=== PATIENT | male | born 1990 | race Caucasian/White ===

== ENCOUNTER 2020-12-26 08:19 | Emergency (ER) | payer BC ==
--- NOTE | 2020-12-26 08:54 | XRAY ---
Indication: Pain. No known injury. Comparison: None 3 view left shoulder obtained. No bony, articular, or soft tissue abnormalities.
[2020-12-26 09:22] LABS: ALBUMIN 4.4 g/dL (3.5-5.0); ALKALINE PHOSPHATASE 76 U/L (38-126); ANION GAP 11.9 MEQ/L (5-15); BLOOD UREA NITROGEN 15 mg/dL (9-20); CHLORIDE 102 mmol/L (98-107); Calcium 9.6 mg/dL (8.4-10.2); Carbon Dioxide 29 mmol/L (22-30); Creatinine 1 1.01 mg/dL (0.66-1.25); EST GLOMERULAR FILTRATION RATE > 60.0 ML/MIN; Glucose 106 mg/dL (74-106); Potassium 3.9 mmol/L (3.5-5.1); SGOT/AST 35 U/L (17-59); SGPT/ALT 38 U/L (0-50); SODIUM 138 mmol/L (137-145); Total Protein 7.8 g/dL (6.3-8.2)
[2020-12-26 09:49] LABS: Absolute Neutrophil Ct (ANC) 6.35 (1.4-6.9); BASOPHIL % 0.4 % (0.0-0.4); Basophil (Absolute #) 0.04 (0-0.4); Eosinophil % 1.1 % (0.00-5.0); Hematocrit 44.8 % (42-50); Hemoglobin 14.2 gm/dl (12.5-18.0); Lymphocyte (Absolute #) 2.01 (1.0-4.6); Lymphocytes % 21.6 % (24.0-44.0); Mean Cell Volume 85.5 fl (78-100); Mean Corpuscular Hemoglobin 27.1 pg (26-32); Mean Corpuscular Hgb Concent. 31.7 g/dl (32-36); Monocytes % 8.6 % (0.0-12.0); Neutrophil % 68.3 % (36.0-66.0); Platelet Count 352 K/mm3 (150-450); Red Blood Count 5.24 M/mm3 (4.1-5.6); Red Cell Distribution Width 13.2 % (11.5-14.0); White Blood Count 9.3 K/mm3 (4.0-10.5)
[2020-12-26 10:09] VITALS: BP 120/73
--- NOTE | 2020-12-26 10:34 | ERPHSYRPT ---
- History of Present Illness Time Seen by Provider: 12/26/20 08:30 Source: patient Exam Limitations: no limitations Patient Subjective Stated Complaint: Left shoulder pain Triage Nursing Assessment: Patient ambulated back to ED and transfered self to bed. Patient A+O X3. Patient's skin pink, warm and dry. Patient complains of left shoulder pain constant dull sharp pain 4/10 that started last night. Patient unable to sleep due to pain. No bruising or visible injuries noted. Physician History: Patient is a 30-year-old male presents to our ED with complaints of left shoulder left upper chest pain that started last night. Pain described as a small ache that is rated 4 out of 10. No associated trauma. No fever. No nausea or vomiting. Patient denies eddie chest pain. No diaphoresis. No shortness of breath. Pain is reproduced with certain motions. Unable to elicit pain with palpation. Symptoms are mild to moderate in intensity. Patient does not see a primary care doctor regularly. Patient voices no other complaints or concerns at this time. Timing/Duration: yesterday Severity: moderate Modifying Factors: Improves With: movement Associated Symptoms: denies symptoms Allergies/Adverse Reactions: No Known Drug Allergies Allergy (Unverified 12/26/20 08:25) Home Medications: No Reportable Medications [No Reported Medications] 12/26/20 [History] Hx Influenza Vaccination/Date Given: No Hx Pneumococcal Vaccination/Date Given: No Immunizations Up to Date: Yes Travel Risk - International Travel Have you traveled outside of the country in past 3 weeks: No - Coronavirus Screening Are you exhibiting any of the following symptoms?: No Close contact with a COVID-19 positive Pt in past 14-21 Days: No - Review of Systems Constitutional: No Symptoms, No Fever, No Chills Eyes: No Symptoms Ears, Nose, & Throat: No Symptoms Respiratory: No Symptoms, No Cough, No Dyspnea Cardiac: No Symptoms, No Chest Pain, No Edema, No Syncope Abdominal/Gastrointestinal: No Symptoms, No Abdominal Pain, No Nausea, No Vomiting, No Diarrhea Genitourinary Symptoms: No Symptoms, No Dysuria Musculoskeletal: No Symptoms, No Back Pain, No Neck Pain Skin: No Symptoms, No Rash Neurological: No Symptoms, No Dizziness, No Focal Weakness, No Sensory Changes Psychological: No Symptoms Endocrine: No Symptoms Hematologic/Lymphatic: No Symptoms Immunological/Allergic: No Symptoms All Other Systems: Reviewed and Negative - Past Medical History Pertinent Past Medical History: No Neurological History: No Pertinent History ENT History: No Pertinent History Cardiac History: No Pertinent History Respiratory History: No Pertinent History Endocrine Medical History: No Pertinent History Musculoskeletal History: No Pertinent History GI Medical History: No Pertinent History History: No Pertinent History Psycho-Social History: No Pertinent History Male Reproductive Disorders: No Pertinent History - Past Surgical History Past Surgical History: No Neuro Surgical History: No Pertinent History Cardiac: No Pertinent History Respiratory: No Pertinent History Gastrointestinal: No Pertinent History Genitourinary: No Pertinent History Musculoskeletal: No Pertinent History Male Surgical History: No Pertinent History - Social History Smoking Status: Never smoker Exposure to second hand smoke: No Drug Use: none Patient Lives Alone: No - Nursing Vital Signs Nursing Vital Signs: Initial Vital Signs Temperature 97.9 F 12/26/20 08:27 Pulse Rate 98 H 12/26/20 08:27 Respiratory Rate 18 12/26/20 08:27 Blood Pressure 153/88 12/26/20 08:27 O2 Sat by Pulse Oximetry 97 12/26/20 08:27 Pain Scale Pain Intensity 4 - Physical Exam General Appearance: no apparent distress, alert Eye Exam: PERRL/EOMI, eyes nml inspection Ears, Nose, Throat Exam: normal ENT inspection, TMs normal, pharynx normal, moist mucous membranes Neck Exam: normal inspection, non-tender, supple, full range of motion Respiratory Exam: normal breath sounds, lungs clear, airway intact, other (Unable to elicit shoulder pain with palpation.), No respiratory distress Cardiovascular Exam: regular rate/rhythm, normal heart sounds, normal peripheral pulses Gastrointestinal/Abdomen Exam: soft, normal bowel sounds, No tenderness, No mass Back Exam: normal inspection, normal range of motion, No CVA tenderness, No vertebral tenderness Extremity Exam: normal inspection, normal range of motion, pelvis stable Neurologic Exam: alert, oriented x 3, cooperative, normal mood/affect, nml cerebellar function, nml station & gait, sensation nml, No motor deficits Skin Exam: normal color, warm, dry, No rash Lymphatic Exam: No adenopathy SpO2 Interpretation: normal SpO2: 98 O2 Delivery: Room Air - Course Nursing assessment & vital signs reviewed: Yes EKG Interpreted by Me: RATE (77), Sinus Rhythm (T wave inversion/flattening at 3 and aVF.), NORMAL AXIS, NORMAL INTERVALS - Radiology Exams Shoulder X-ray Interpretation: Teleradiologist Report (Use of left shoulder obtained. No bony articular or soft tissue abnormalities.) Ordered Tests: Active Orders 24 hr Category Date Time Status Knitting Machine Operator Helper STAT Care 12/26/20 08:53 Active EKG-ER Only STAT Care 12/26/20 08:52 Active Pulse Oximetry (ED) STAT Care 12/26/20 08:52 Active SHOULDER Stat Exams 12/26/20 08:48 Completed CBC W DIFF Stat Lab 12/26/20 09:05 Completed CMP Stat Lab 12/26/20 09:05 Completed D-DIMER QUANTITATIVE Stat Lab 12/26/20 09:05 Completed TROPONIN Q3H Lab 12/26/20 09:05 Completed TROPONIN Q3H Lab 12/26/20 10:55 Received TROPONIN Q3H Lab 12/26/20 15:00 Ordered TROPONIN Q3H Lab 12/26/20 18:00 Ordered TROPONIN Q3H Lab 12/26/20 21:00 Ordered Lab/Rad Data: Laboratory Result Diagrams 12/26/20 09:05 12/26/20 09:05 Laboratory Results 12/26/20 12/26/20 12/26/20 Range/Units 09:05 09:05 09:05 WBC (4.0-10.5) K/mm3 RBC (4.1-5.6) M/mm3 Hgb (12.5-18.0) gm/dl Hct (42-50) % MCV (78-100) fl MCH (26-32) pg MCHC (32-36) g/dl RDW (11.5-14.0) % Plt Count (150-450) K/mm3 MPV (7.5-11.0) fl Gran % (36.0-66.0) % Eos # (Auto) (0-0.5) Absolute Lymphs (auto) (1.0-4.6) Absolute Monos (auto) (0.0-1.3) Lymphocytes % (24.0-44.0) % Monocytes % (0.0-12.0) % Eosinophils % (0.00-5.0) % Basophils % (0.0-0.4) % Absolute Granulocytes (1.4-6.9) Basophils # (0-0.4) D-Dimer < 215 L (215-500) ng/mL Sodium 138 (137-145) mmol/L Potassium 3.9 (3.5-5.1) mmol/L Chloride 102 (98-107) mmol/L Carbon Dioxide 29 (22-30) mmol/L Anion Gap 11.9 (5-15) MEQ/L BUN 15 (9-20) mg/dL Creatinine 1.01 (0.66-1.25) mg/dL Estimated GFR > 60.0 ML/MIN Glucose 106 (74-106) mg/dL Calcium 9.6 (8.4-10.2) mg/dL Total Bilirubin 0.40 (0.2-1.3) mg/dL AST 35 (17-59) U/L ALT 38 (0-50) U/L Alkaline Phosphatase 76 (38-126) U/L Troponin I < 0.012 (0.000-0.034) ng/mL Serum Total Protein 7.8 (6.3-8.2) g/dL Albumin 4.4 (3.5-5.0) g/dL 12/26/20 Range/Units 09:05 WBC 9.3 (4.0-10.5) K/mm3 RBC 5.24 (4.1-5.6) M/mm3 Hgb 14.2 (12.5-18.0) gm/dl Hct 44.8 (42-50) % MCV 85.5 (78-100) fl MCH 27.1 (26-32) pg MCHC 31.7 L (32-36) g/dl RDW 13.2 (11.5-14.0) % Plt Count 352 (150-450) K/mm3 MPV 9.0 (7.5-11.0) fl Gran % 68.3 H (36.0-66.0) % Eos # (Auto) 0.10 (0-0.5) Absolute Lymphs (auto) 2.01 (1.0-4.6) Absolute Monos (auto) 0.80 (0.0-1.3) Lymphocytes % 21.6 L (24.0-44.0) % Monocytes % 8.6 (0.0-12.0) % Eosinophils % 1.1 (0.00-5.0) % Basophils % 0.4 (0.0-0.4) % Absolute Granulocytes 6.35 (1.4-6.9) Basophils # 0.04 (0-0.4) D-Dimer (215-500) ng/mL Sodium (137-145) mmol/L Potassium (3.5-5.1) mmol/L Chloride (98-107) mmol/L Carbon Dioxide (22-30) mmol/L Anion Gap (5-15) MEQ/L BUN (9-20) mg/dL Creatinine (0.66-1.25) mg/dL Estimated GFR ML/MIN Glucose (74-106) mg/dL Calcium (8.4-10.2) mg/dL Total Bilirubin (0.2-1.3) mg/dL AST (17-59) U/L ALT (0-50) U/L Alkaline Phosphatase (38-126) U/L Troponin I (0.000-0.034) ng/mL Serum Total Protein (6.3-8.2) g/dL Albumin (3.5-5.0) g/dL - Progress Progress: improved Progress Note: 12/26/20 10:35 Patient reassessed. No active pain at this time. Vital stable. X-ray shoulder negative for acute pathology. In light of the fact that patient does not follow a primary care physician and patient's pain unable to be elicited with palpation to the shoulder and the proximity of the pain to the patient's chest we initiated a screening cardiac work-up. EKG reveals T wave inversions at 3 and aVF. Otherwise nonremarkable EKG. Troponin negative x2. Will discharge patient home. Patient to follow-up with his primary care doctor within 48 hours for reevaluation. Patient does not have a primary care doctor to follow-up with. Our no doc for the day is Dr. Londono. Referral to Dr. Londono was provided to patient. 12/26/20 10:37 Counseled pt/family regarding: lab results, diagnosis, need for follow-up, rad results - Departure Departure Disposition: Home Clinical Impression: Shoulder pain, Abnormal EKG Condition: Stable Critical Care Time: No Referrals: DOCTOR,NO FAMILY [Primary Care Provider] - FEI LONDONO [ACTIVE STAFF] - Instructions: Shoulder Sprain (DC) Additional Instructions: Discharge/Care Plan COLBYEVAJOSAFAT JESSIKA was seen on 12/26/20 in the Emergency Room. The patient was counseled regarding Diagnosis,Lab results, Imaging studies, need for follow up and when to return to the Emergency Room. Prescriptions given: Discharge Note I have spoken with the patient and/or caregivers. I have explained the patient's condition, diagnosis and treatment plan based on the information available to me at this time. I have answered the patient's and/or caregiver's questions and addressed any concerns. The patient and/or caregivers have as good understanding of the patient's diagnosis, condition and treatment plan as can be expected at this point. The vital signs have been stable. The patient's condition is stable and appropriate for discharge from the emergency department. The patient will pursue further outpatient evaluation with the primary care physician or other designated or consulting physician as outlined in the discharge instructions. The patient and/or caregivers are agreeable to this plan of care and follow-up instructions have been explained in detail. The patient and/or caregivers have received these instruction. The patient/and or caregivers are aware that any significant change in condition or worsening of symptoms michael uld prompt an immediate return to this or the closest emergency department or call 911.
[2020-12-26 11:07] VITALS: PULSE 77
[2020-12-26 11:28] VITALS: O2SAT 98
== END 2020-12-26 11:34 | disposition home or self-care (01) ==
LOC: ED 08:19
DX: M25.512 Pain in left shoulder (principal); R07.9 Chest pain, unspecified; R94.31 Abnormal electrocardiogram [ECG] [EKG]
CPT/HCPCS: 36000; 36415; 73030; 80053; 84484; 85025; 85379; 93005; 93041; 94760; 99284

== ENCOUNTER 2021-05-08 11:52 | Emergency (ER) | payer BC ==
[2021-05-08 12:02] VITALS: BP 143/83; PULSE 69; O2SAT 98
--- NOTE | 2021-05-08 12:42 | XRAY ---
Indication: Left testicle pain. Two-dimensional testicular sonogram performed. Comparison: None Both testicles homogeneous in echogenicity with normal color perfusion. Right testicle measures 3.5 x 2.3 x 2.1 cm and the left measures 3.7 x 2.2 x 3.0 cm. Left and right epididymis sonographically unremarkable. Mild bilateral varicoceles accentuated with Valsalva maneuvering. Tiny nonspecific left hydrocele. No suspicious extratesticular mass. Impression: 1. Bilateral varicoceles. 2. Negative for suspicious intra/extra testicular mass or torsion.
[2021-05-08 12:46] LABS: Appearance CLEAR (CLEAR); Bilirubin NEGATIVE (NEGATIVE); Blood NEGATIVE Ery/ul (0-5); Glucose NEGATIVE (NEGATIVE); Ketones NEGATIVE (NEGATIVE); Leukocyte Esterase NEGATIVE (NEGATIVE); Nitrite NEGATIVE (NEGATIVE); Protein,Urine Dip NEGATIVE (Negative); Specific Gravity 1.005 (1.005-1.025); Urobilinogen NEGATIVE mg/dL (0-1)
--- NOTE | 2021-05-08 13:02 | ERPHSYRPT ---
- History of Present Illness Time Seen by Provider: 05/08/21 12:00 Source: patient Exam Limitations: no limitations Patient Subjective Stated Complaint: Pt states that his left testicle may be a little swollen and he also has pain in the left groin area Triage Nursing Assessment: Pt brought self to the ER, hypertensive, rates pain as 2-3/10, stated doctor is out of town until and he didn't want to wait in case something was wrong, pulses normal, denies injury, doesn't appear to be in any distress Physician History: Patient is a 30-year-old male presents to our ED for evaluation of suspected left testicular swelling mild pain and left groin pain. Pain started yesterday. Pain is minimal at this time rated 2 out of 10. Patient declined pain medication. No trauma. No fever. No nausea or vomiting. No abdominal pain. Patient denies trauma. Patient denies the possibility of STI. No penile discharge or lesions. Symptoms are mild to moderate in intensity. Palpation reproduce symptoms. Pain improves with rest. Patient is otherwise healthy. He voices no other complaints or concerns at this time. Timing/Duration: yesterday Severity: mild Modifying Factors: Improves With: other (Palpation.) Associated Symptoms: denies symptoms Allergies/Adverse Reactions: No Known Drug Allergies Allergy (Verified 05/08/21 12:02) Home Medications: No Reportable Medications [No Reported Medications] 12/26/20 [History] Hx Influenza Vaccination/Date Given: No Hx Pneumococcal Vaccination/Date Given: No Travel Risk - International Travel Have you traveled outside of the country in past 3 weeks: No - Coronavirus Screening Are you exhibiting any of the following symptoms?: No Close contact with a COVID-19 positive Pt in past 14-21 Days: No - Vaccine Status Have you recieved a Covid-19 vaccination: Yes Coffee Sommelier: Moderna - Vaccination Dates Date of 2cond Vaccination (if applicable): 03/31/2021 - Review of Systems Constitutional: No Symptoms, No Fever, No Chills Eyes: No Symptoms Ears, Nose, & Throat: No Symptoms Respiratory: No Symptoms, No Cough, No Dyspnea Cardiac: No Symptoms, No Chest Pain, No Edema, No Syncope Abdominal/Gastrointestinal: No Symptoms, No Abdominal Pain, No Nausea, No Vomiting, No Diarrhea Genitourinary Symptoms: No Symptoms, No Dysuria Musculoskeletal: No Symptoms, No Back Pain, No Neck Pain Skin: No Symptoms, No Rash Neurological: No Symptoms, No Dizziness, No Focal Weakness, No Sensory Changes Psychological: No Symptoms Endocrine: No Symptoms Hematologic/Lymphatic: No Symptoms Immunological/Allergic: No Symptoms All Other Systems: Reviewed and Negative - Past Medical History Pertinent Past Medical History: No Neurological History: No Pertinent History ENT History: No Pertinent History Cardiac History: No Pertinent History Respiratory History: No Pertinent History Endocrine Medical History: No Pertinent History Musculoskeletal History: No Pertinent History GI Medical History: No Pertinent History History: No Pertinent History Psycho-Social History: No Pertinent History Male Reproductive Disorders: No Pertinent History - Past Surgical History Past Surgical History: No Neuro Surgical History: No Pertinent History Cardiac: No Pertinent History Respiratory: No Pertinent History Gastrointestinal: No Pertinent History Genitourinary: No Pertinent History Musculoskeletal: No Pertinent History Male Surgical History: No Pertinent History - Social History Smoking Status: Never smoker Exposure to second hand smoke: No Drug Use: none Patient Lives Alone: No - Nursing Vital Signs Nursing Vital Signs: Initial Vital Signs Temperature 98.3 F 05/08/21 11:56 Pulse Rate 69 05/08/21 11:56 Blood Pressure 143/83 05/08/21 11:56 O2 Sat by Pulse Oximetry 98 05/08/21 11:56 Pain Scale Pain Intensity 2 - Physical Exam General Appearance: no apparent distress, alert Eye Exam: PERRL/EOMI, eyes nml inspection Ears, Nose, Throat Exam: normal ENT inspection, TMs normal, pharynx normal, moist mucous membranes Neck Exam: normal inspection, non-tender, supple, full range of motion Respiratory Exam: normal breath sounds, lungs clear, No respiratory distress Cardiovascular Exam: regular rate/rhythm, normal heart sounds, normal peripheral pulses Gastrointestinal/Abdomen Exam: soft, normal bowel sounds, No tenderness, No mass Back Exam: normal inspection, normal range of motion, No CVA tenderness, No vertebral tenderness Extremity Exam: normal inspection, normal range of motion, pelvis stable Neurologic Exam: alert, oriented x 3, cooperative, normal mood/affect, nml cerebellar function, nml station & gait, sensation nml, No motor deficits Skin Exam: normal color, warm, dry, No rash Lymphatic Exam: No adenopathy SpO2 Interpretation: normal SpO2: 98 O2 Delivery: Room Air - Course Nursing assessment & vital signs reviewed: Yes - Radiology Ultrasound Exam Scrotal Ultrasound: tele radiology report (Both testicles are homogenous in echogenicity with normal color perfusion. Right testicle measures 3.5 x 2.3 x 2.1 cm and left measures 3.7 x 2.2 x 3.0 cm. Left and right epididymis sonographically unremarkable. Bilateral varicoceles accentuated with Valsalva maneuvering. ) Ordered Tests: Active Orders 24 hr Category Date Time Status TESTICLE [US] Stat Exams 05/08/21 12:03 Completed UA W/RFX UR CULTURE Stat Lab 05/08/21 12:08 Completed Lab/Rad Data: Laboratory Results 05/08/21 Range/Units 12:08 Urine Color STRAW (YELLOW) Urine Appearance CLEAR (CLEAR) Urine pH 7.0 (5-6) Ur Specific Bynum 1.005 (1.005-1.025) Urine Protein NEGATIVE (Negative) Urine Ketones NEGATIVE (NEGATIVE) Urine Blood NEGATIVE (0-5) Kevon/ul Urine Nitrite NEGATIVE (NEGATIVE) Urine Bilirubin NEGATIVE (NEGATIVE) Urine Urobilinogen NEGATIVE (0-1) mg/dL Ur Leukocyte Esterase NEGATIVE (NEGATIVE) Urine WBC (Auto) NONE (0-5) /HPF Urine RBC (Auto) NONE (0-2) /HPF U Epithel Cells (Auto) NONE (FEW) /HPF Urine Bacteria (Auto) NONE (NEGATIVE) /HPF Urine Culture Reflexed NO (NO) Urine Glucose NEGATIVE (NEGATIVE) mg/dL - Progress Progress: improved Progress Note: 05/08/21 13:08 Patient reassessed. He is well. Vital stable. Pain minimal. Patient advised to follow-up with Dr. Duran on when he returns. Patient agrees. GC chlamydia obtained. Pending results. Ultrasound testicles reveals bilateral varicoceles. Otherwise negative for suspicious intra or extra testicular mass or torsion. Plan of care discussed with patient. He agrees to follow-up as discussed. Patient voices no other complaints or concerns at this time. Will discharge home. Counseled pt/family regarding: lab results, diagnosis, need for follow-up, rad results - Departure Departure Disposition: Home Clinical Impression: Left groin pain, Testicle pain, Bilateral varicoceles Condition: Stable Critical Care Time: No Referrals: CHANG DURAN [Primary Care Provider] - Additional Instructions: Discharge/Care Plan JOSAFAT PAULSON was seen on 05/08/21 in the Emergency Room. The patient was counseled regarding Diagnosis,Lab results, Imaging studies, need for follow up and when to return to the Emergency Room. Prescriptions given: Discharge Note I have spoken with the patient and/or caregivers. I have explained the patient's condition, diagnosis and treatment plan based on the information available to me at this time. I have answered the patient's and/or caregiver's questions and addressed any concerns. The patient and/or caregivers have as good understanding of the patient's diagnosis, condition and treatment plan as can be expected at this point. The vital signs have been stable. The patient's condition is stable and appropriate for discharge from the emergency department. The patient will pursue further outpatient evaluation with the primary care physician or other designated or consulting physician as outlined in the discharge instructions. The patient and/or caregivers are agreeable to this plan of care and follow-up instructions have been explained in detail. The patient and/or caregivers have received these instruction. The patient/and or caregivers are aware that any significant change in condition or worsening of symptoms should prompt an immediate return to this or the closest emergency department or call 911.
== END 2021-05-08 13:06 | disposition home or self-care (01) ==
LOC: ED 11:52
DX: R10.32 Left lower quadrant pain (principal); N50.819 Testicular pain, unspecified; I86.1 Scrotal varices
CPT/HCPCS: 76870; 81001; 87491; 87591; 99283

== ENCOUNTER 2021-06-13 17:31 | Emergency (ER) | payer BC ==
[2021-06-13 17:45] VITALS: BP 123/60; PULSE 88; O2SAT 96
--- NOTE | 2021-06-13 17:56 | ERPHSYRPT ---
- History of Present Illness Time Seen by Provider: 06/13/21 17:40 Source: patient Exam Limitations: no limitations Patient Subjective Stated Complaint: Pt was playing ball with his dog when the dog went to grab it from the pt and he bit his hand instead Triage Nursing Assessment: Pt brought to the ER by his dad, vitals wnl, 3 bites/tears on left hand, pt rates pain as 4/10, denies any other injuries, no bleeding at this time Physician History: Is a 30-year-old white male who was playing with his dog in a ball the dog accidentally bit his hand instead of the ball he has 4 lacerations of any size at all the largest on the dorsum of the hand measures 1 cm the others are mostly puncture wounds and superficial abrasions. Occurred: just prior to arrival Method of Injury: other (Dog bite) Quality: constant Severity of Pain-Max: moderate Severity of Pain-Current: mild Extremities Pain Location: hand: left (Multiple small puncture wounds abrasions and a laceration measuring 1 cm from a dog bite.) Modifying Factors: Improves With: nothing Associated Symptoms: none Allergies/Adverse Reactions: No Known Drug Allergies Allergy (Verified 06/13/21 17:46) Hx Influenza Vaccination/Date Given: No Hx Pneumococcal Vaccination/Date Given: No Travel Risk - International Travel Have you traveled outside of the country in past 3 weeks: No - Coronavirus Screening Are you exhibiting any of the following symptoms?: No Close contact with a COVID-19 positive Pt in past 14-21 Days: No - Vaccine Status Have you recieved a Covid-19 vaccination: Yes Red Leader: Moderna - Vaccination Dates Date of 2cond Vaccination (if applicable): 03/31/2021 - Review of Systems Constitutional: No Fever, No Chills Eyes: No Symptoms Ears, Nose, & Throat: No Symptoms Respiratory: No Cough, No Dyspnea Cardiac: No Chest Pain, No Edema, No Syncope Abdominal/Gastrointestinal: No Abdominal Pain, No Nausea, No Vomiting, No Diarrhea Genitourinary Symptoms: No Dysuria Musculoskeletal: No Back Pain, No Neck Pain Skin: Other (Dog bite left hand), No Rash Neurological: No Dizziness, No Focal Weakness, No Sensory Changes Psychological: No Symptoms Endocrine: No Symptoms All Other Systems: Reviewed and Negative - Past Medical History Pertinent Past Medical History: No Neurological History: No Pertinent History ENT History: No Pertinent History Cardiac History: No Pertinent History Respiratory History: No Pertinent History Endocrine Medical History: No Pertinent History Musculoskeletal History: No Pertinent History GI Medical History: No Pertinent History History: No Pertinent History Psycho-Social History: No Pertinent History Male Reproductive Disorders: No Pertinent History - Past Surgical History Past Surgical History: No Neuro Surgical History: No Pertinent History Cardiac: No Pertinent History Respiratory: No Pertinent History Gastrointestinal: No Pertinent History Genitourinary: No Pertinent History Musculoskeletal: No Pertinent History Male Surgical History: No Pertinent History - Social History Smoking Status: Never smoker Exposure to second hand smoke: No Drug Use: none Patient Lives Alone: No - Nursing Vital Signs Nursing Vital Signs: Initial Vital Signs Temperature 98.3 F 06/13/21 17:39 Pulse Rate 88 06/13/21 17:39 Blood Pressure 123/60 06/13/21 17:39 O2 Sat by Pulse Oximetry 96 06/13/21 17:39 Pain Scale Pain Intensity 4 - Physical Exam General Appearance: alert Eyes, Ears, Nose, Throat Exam: moist mucous membranes Neck Exam: non-tender, supple Cardiovascular/Respiratory Exam: chest non-tender, normal breath sounds, regular rate/rhythm, no respiratory distress Abdominal Exam: non-tender, No guarding Back Exam: normal inspection, No vertebral tenderness Hand Exam: laceration (Middle laceration dorsum of the hand abrasions and puncture wounds small a total of 4) Neuro/Tendon Exam: normal sensation, normal motor functions Mental Status Exam: alert, oriented x 3, cooperative Skin Exam: normal color, warm, dry SpO2 Interpretation: normal SpO2: 96 O2 Delivery: Room Air - Course Nursing assessment & vital signs reviewed: Yes - Progress Progress: unchanged Progress Note: 06/13/21 17:55 Patient is a 30-year-old with a dog bite to the left hand which is cleaned explored bacitracin applied and sterile dressings. - Departure Clinical Impression: Dog bite of left hand Condition: Stable Critical Care Time: No Referrals: LISETTE CAMERON MD [Primary Care Provider] - Instructions: Animal Bites (DC) Prescriptions: Amox Tr/Potass Clav. 500 mg [Augmentin 500-125 Tablet] 500 mg PO BID 7 Days #14 tablet
[2021-06-13] MEDS ORDERED: Adacel Vial IM ONE ×2 (17:57→17:58)
== END 2021-06-13 18:30 | disposition home or self-care (01) ==
LOC: ED 17:31
DX: S61.432A Puncture wound without foreign body of left hand, initial encounter (principal); W54.0XXA Bitten by dog, initial encounter; Y93.89 Activity, other specified; Y92.89 Other specified places as the place of occurrence of the external cause
CPT/HCPCS: 90471; 90715; 99283